=== PATIENT | male | born 1975 | race Caucasian/White ===

== ENCOUNTER 2020-10-13 08:42 | Emergency (ER) | payer MEDICAID ==
[~2020-10-13] VITALS: Ht 177.8 cm; Wt 80.7 kg
[2020-10-13 08:42] VITALS: BP 140/84
--- NOTE | 2020-10-13 09:02 | NUR ---
Patient given written and verbal discharge instructions. Patient verbalizes understanding of instructions. Patient is ambulatory with steady gait. Refuses offer of skilled nursing placement. Patient given list of available shelters in surrounding area.
== END 2020-10-13 09:13 | disposition home or self-care (01) ==
LOC: ER 08:45
DX: K40.90 Unilateral inguinal hernia, without obstruction or gangrene, not specified as recurrent (principal); J45.909 Unspecified asthma, uncomplicated; Z98.890 Other specified postprocedural states

== ENCOUNTER 2022-03-12 18:13 | Emergency (ER) | payer SELFPAY ==
[~2022-03-12] VITALS: Ht 185.4 cm; Wt 80.7 kg
--- NOTE | 2022-03-12 18:58 | NUR ---
C/O LOWER BACK PAIN 11/16 X YESTERDAY NO TRAUMA. PT A/OX4. TOLERATING R/A WELL WITH NO RESP DISTRESS. CONNECTED PT TO POX AND MONITOR.
[2022-03-12] MEDS ORDERED: KETOROLAC TROMETHAMINE 15 MG/ML VIAL ONE ×2 (19:21→20:57)
[2022-03-12] MEDS ORDERED: CYCLOBENZAPRINE 10 MG TABLET ONE (19:21)
[2022-03-12] MEDS: KETOROLAC TROMETHAMINE INJ 60 MG/2 ML VIAL IM ONE (19:35)
[2022-03-12] MEDS: CYCLOBENZAPRINE 10 MG TABLET PO ONE (19:35)
--- NOTE | 2022-03-12 19:35 | NUR ---
IV LAC #18G S/L BLOOD COLLECTED AND SENT TO LAB
--- NOTE | 2022-03-12 19:36 | NUR ---
PROVIDED PT WITH URINAL; NOT ABLE TO COLLECTED URINE AT THIS TIME. WILL TRY AGAIN LATER.
--- NOTE | 2022-03-12 19:43 | NUR ---
US TECH AT PT'S BEDSIDE
[2022-03-12] MEDS ORDERED: IV NS 0.9% 250 ML IV ONE (19:50)
[2022-03-12] MEDS ORDERED: CT SWABBABLE VALVE TRANS SET 1 EA INFUS.SET MC ONE (19:50)
[2022-03-12] MEDS ORDERED: IOHEXOL-300 100 ML VIAL IV ONE ×2 (19:50→20:13)
--- NOTE | 2022-03-12 19:58 | NUR ---
PT TAKEN TO CT VIA [facility]
[2022-03-12 20:03] LABS: BASOPHILS % (AUTO) 0.4 % (0.0-2.0); EOSINOPHILS % (AUTO) 1.1 % (0.0-6.0); HEMATOCRIT 41 % (39-51); HEMOGLOBIN 13.8 g/dL (13.5-17.5); LYMPHOCYTES # (AUTO) 0.8 K/uL (0.8-4.8); LYMPHOCYTES % (AUTO) 9.4 % (20.0-44.0); MEAN CORPUSCULAR HGB CONC 34 g/dl (31.0-36.0); MEAN CORPUSCULAR VOLUME 94 fL (80-96); MONOCYTES # (AUTO) 0.7 K/uL (0.1-1.30); MONOCYTES % (AUTO) 8.5 % (2.0-12.0); NEUTROPHILS # (AUTO) 6.5 K/uL (1.8-8.9); NEUTROPHILS % (AUTO) 80.6 % (43.0-81.0); RED BLOOD CELL COUNT(AUTO) 4.34 MIL/uL (4.5-6.0)
[2022-03-12 20:13] LABS: ALANINE AMINOTRANSFERASE 19 U/L (12-78); ALBUMIN 3.2 g/dL (3.4-5.0); ALKALINE PHOSPHATASE 76 U/L (46-116); ASPARTATE AMINOTRANSFERASE 12 U/L (15-37); BILIRUBIN,DIRECT 0.2 mg/dL (0.0-0.2); BILIRUBIN,TOTAL 0.7 mg/dL (0.2-1.0); CALCIUM, SERUM 8.7 mg/dL (8.5-10.1); CARBON DIOXIDE 26 mmol/L (21-32); CHLORIDE 99 mmol/L (98-107); CREATININE 1.1 mg/dL (0.6-1.3); GLUCOSE 128 mg/dL (74-106); LIPASE 257 U/L (73-393); POTASSIUM 4.1 mmol/L (3.5-5.1); SODIUM SERUM 132 mmol/L (136-145); TOTAL PROTEIN, SERUM 6.5 g/dL (6.4-8.2); UREA NITROGEN, BLOOD 20 mg/dL (7-18)
--- NOTE | 2022-03-12 20:18 | NUR ---
Susana veloz in [place] - 03/12/22 at 2039 by ROBER C/O LOWER BACK PAIN 11/16 X YESTERDAY NO TRAUMA
[2022-03-12 20:21] LABS: PLATELET COUNT (AUTO) 315 K/uL (150-450)
--- NOTE | 2022-03-12 20:51 | NUR ---
PT NOT ABLE TO GIVE URINE SAMPLE; WILL TRY AGAIN LATER.
[2022-03-12] MEDS: KETOROLAC TROMETHAMINE INJ 30 MG/ML VIAL IV ONE (21:04)
--- NOTE | 2022-03-12 21:24 | NUR ---
URINE SENT TO LAB
[2022-03-12 21:47] LABS: BILIRUBIN,URINE NEGATIVE (NEGATIVE); COLOR,URINE YELLOW (YELLOW); NITRITE, URINE NEGATIVE (NEGATIVE); PROTEIN,URINE NEGATIVE (NEGATIVE); UGLUCOSE NEGATIVE (NEGATIVE)
[2022-03-12] MEDS ORDERED: ALBU18HF2 INH (21:49)
[2022-03-12] MEDS ORDERED: DOXY100C2 PO (21:49)
[2022-03-12] MEDS ORDERED: IBUP-1957 PO (21:49)
[2022-03-12] MEDS ORDERED: DOXYCYCLINE HYCLATE (100 MG) 100 MG TABLET ONE (21:54)
[2022-03-12] MEDS ORDERED: MORPHINE SULFATE INJ 4 MG/ML DISP.SYRIN ONE (21:54)
[2022-03-12] MEDS ORDERED: CEFTRIAXONE 500 MG VIAL ONE (21:54)
[2022-03-12] MEDS ORDERED: LIDOCAINE /MPF 1% VIAL 5 ML VIAL ONE (21:55)
[2022-03-12 22:00] LABS: BACTERIA,URINE 1+ /HPF (None Seen); LEUKOCYTE ESTERASE ,URINE NEGATIVE (NEGATIVE); MUCUS,URINE Few /LPF (None Seen); RBC,URINE 0-2 /HPF (0-2); SQUAMOUS EPITHELIAL CELL,UR 0-2 /HPF (None Seen)
[2022-03-12] MEDS: CEFTRIAXONE 500 MG VIAL IM ONE (22:05)
[2022-03-12] MEDS: DOXYCYCLINE HYCLATE (100 MG) 100 MG TABLET PO ONE (22:05)
[2022-03-12] MEDS: MORPHINE SULFATE INJ 2 MG/ML DISP.SYRIN IV ONE (22:05)
--- NOTE | 2022-03-12 22:06 | NUR ---
Patient discharged to home in stable condition. Written and verbal after care instructions given. Patient verbalizes understanding of instruction. IV removed. Catheter intact and site benign. Pressure and 4x4 applied to site. No bleeding noted.
[2022-03-12 23:11] VITALS: BP 110/67
== END 2022-03-12 22:05 | disposition home or self-care (01) ==
LOC: ER 18:32
DX: K40.90 Unilateral inguinal hernia, without obstruction or gangrene, not specified as recurrent (principal); N45.1 Epididymitis; R10.31 Right lower quadrant pain; J45.909 Unspecified asthma, uncomplicated; Z79.899 Other long term (current) drug therapy
CPT/HCPCS: 99285; 72131; 96374; 71045; 96375; 96376; 76870; 74177; 85025; 80048; 87086 ×2; 83690; 80076; 81001; 36415; 84484; 96372; J2270; J0696; J7050; J3490; Q9967 ×2; J1885 ×2

== ENCOUNTER 2022-03-22 18:39 | Emergency (ER) | payer SELFPAY ==
[~2022-03-22] VITALS: Ht 188 cm; Wt 78.0 kg
[~2022-03-22 18:39] MED LIST: ALBU18HF2 INH; DOXY100C2 PO; IBUP-1957 PO
--- NOTE | 2022-03-22 18:50 | NUR ---
PT STATES "SOMEONE ELSE PICKED UP HIS PRESCRIPTION AT PHARMACY" REQUESTING [facility]. NO MEDICAL COMPLAINTS.
[2022-03-22] MEDS ORDERED: DOXY100C2 PO (19:11)
[2022-03-22] MEDS ORDERED: ALBU18HF2 INH (19:11)
[2022-03-22] MEDS ORDERED: IBUP-1955 PO (19:11)
--- NOTE | 2022-03-22 19:59 | NUR ---
Patient discharged to home in stable condition. Written and verbal after care instructions given. Patient verbalizes understanding of instruction.
[2022-03-22 20:02] VITALS: BP 130/65
== END 2022-03-22 19:59 | disposition home or self-care (01) ==
LOC: ER 18:44
DX: Z76.0 Encounter for issue of repeat prescription (principal); J45.909 Unspecified asthma, uncomplicated; Z87.438 Personal history of other diseases of male genital organs; Z87.19 Personal history of other diseases of the digestive system; Z79.899 Other long term (current) drug therapy
CPT/HCPCS: 87491; 87591

== ENCOUNTER 2023-07-05 21:15 | Emergency (ER) | payer MEDICAID, OTHER ==
[~2023-07-05] VITALS: Ht 177.8 cm; Wt 77.1 kg
[~2023-07-05 21:15] MED LIST changes: +ALBU8.5H8 INH; +CEPH500T PO; +IBUP-1953 PO; +IBUP-1955 PO; +SULF1TAB48 PO
[2023-07-05 21:20] VITALS: BP 141/70; TEMP 98.3; O2SAT 100
== END 2023-07-05 23:31 | disposition left against medical advice (07) ==
LOC: ER 21:16
DX: M54.9 Dorsalgia, unspecified (principal); Z53.21 Procedure and treatment not carried out due to patient leaving prior to being seen by health care provider